=== PATIENT | male | born 1945 | race Caucasian/White ===

== ENCOUNTER 2024-02-08 11:07 | Emergency (ER) | payer OTHER, SELFPAY ==
--- NOTE | ~2024-02-08 | CT_ITS ---
EXAMINATION: CT angio head neck CLINICAL INFORMATION: Visual changes left eye. COMPARISON: No other prior imaging. TECHNIQUE: Blanket Weaver images were obtained. A CT angiogram of the head and neck was performed in the arterial phase after the intravenous administration of 50 mL Omnipaque 350. Pre and delayed postcontrast images of the head were also obtained. 3D images were processed on an independent workstation under concurrent supervision. Arterial stenoses are measured in accordance with NASCET criteria or similar method if applicable. This CT examination was performed using dose optimization techniques as appropriate, including one or more of the following: Automated exposure control, iterative reconstruction, and adjustment of technique factors (mA and/or kVp) according to patient size (this includes techniques or standardized protocols for targeted exams where dose is matched to indication/reason for exam). Fleischner Society criteria for the followup of incidental pulmonary nodules was implemented if appropriate. Total exam dose-length product 2472 mGy-cm FINDINGS: Head: There is no acute intracranial hemorrhage or abnormal extra-axial collection. Postcontrast images reveal no underlying cranial mass or enhancement. There is no mass effect or midline shift. Lateral and third ventricles are normal. No hydrocephalus. Cat-white matter differentiation is preserved and there is no evidence of acute territorial infarct. The calvarium and skull base are intact. Mastoid air cells and middle ear cavities are well aerated. No active paranasal sinus disease. CT angiogram neck: The aortic arch apex is normal. Origins of the major aortic branches are widely patent. Common carotid arteries are patent. Partially calcified atheromatous plaque involves both carotid bifurcations. There is no stenosis of the extracranial internal carotid arteries. Cervical segments of the vertebral arteries are widely patent. CT angiogram head: Intracranial internal carotid arteries are patent. The intradural vertebral artery segments and basilar artery are patent. Anterior, middle, and posterior cerebral complexes are normal. No intracranial large vessel occlusion. No identifiable aneurysm or high flow vascular lesion. Other: Soft tissues of the neck including the thyroid gland are normal. No pathologically enlarged cervical lymph nodes. Lung apices are clear. No acute osseous finding. Specifically no worrisome lytic or blastic osseous lesion. CT/CT angio head neck IMPRESSION: Unremarkable examination in that there is no stenosis of the cervical carotid or vertebral arteries. No intracranial large vessel occlusion. No evidence of acute territorial infarct or hemorrhage. No abnormal intracranial mass or enhancement. Electronically signed by: Anand Diamond MD 02/08/2024 04:00 PM EDT RP
[2024-02-08 11:12] VITALS: BP 113/58; PULSE 63; RESP 18; TEMP 36.1; O2SAT 94; BMI 31.2
--- NOTE | 2024-02-08 11:15 | ED.EYEPROB ---
HPI - Eye Problem General Chief complaint: Eye Problems Stated complaint: vission issues l eye Time Seen by Provider: 02/08/24 11:55 Source: patient Mode of arrival: ambulatory Limitations: no limitations History of Present Illness ED Provider: oziel MANDEL Narrative: Patient is a 78-year-old male with history of CVA, cataract surgery, HTN, HLD, and LA presenting to the emergency department with complaint of hazy vision to lower field of vision in left eye since waking this morning. States that the affected area is to lower lateral field of vision in left eye only. feels left lower eyelid is slightly swollen. He denies headache, dizziness or lightheadedness. Denies any weakness, numbness, tingling to extremities. Denies known foreign body to eye. chief complaint: vision change Onset (ago): hour(s) Onset description: awoke with symptoms Duration: constant Location: left eye Eye Symptoms: blurry vision Place: home Mechanism: none Associated symptoms: none Treatments Prior to Arrival: none Related Data Allergies Allergy/AdvReac Type Severity Reaction Status Date / Time rofecoxib [From Vioxx] Allergy Unknown Verified 02/08/24 11:20 Review of Systems Review of Systems: As per hPI Yes all other systems are reviewed and are negative Constitutional: Constitutional: Reports as per HPI [facility] Social History Social History Advance Directives: No Advance Directives Information Provided: No Do you have a plan to hurt others: No Plan Physical Exam Vital Signs: Vital Signs: Last Vital Signs Temp 96.9 F 02/08/24 11:12 Pulse 63 02/08/24 11:12 Resp 18 02/08/24 11:12 BP 113/58 L 02/08/24 11:12 Pulse Ox 94 02/08/24 11:12 O2 Del Method Room Air 02/08/24 11:12 BMI result Body Mass Index 31.2 Vital signs have been reviewed and appear to be correct. Blood pressure normal. Heart rate normal. Respiratory rate normal. Temperature normal. Oxygen saturation normal. Const: General: cooperative, healthy appearing and no acute distress Orientation/consciousness: oriented to person, oriented to place, oriented to time and patient oriented x3 Limitations: no limitations HEENT: Head: Yes normocephalic and Yes atraumatic Ears: external ears normal General nose exam: Normal external nose present Face and sinus: Yes face symmetric Mouth: oropharynx normal and moist mucous membranes Throat: Yes uvula midline Eyes: Other: General: appearance normal, both eyes and all related structures Visual Young: normal visual young by confrontation Alignment and Position: alignment normal and position normal Periorbital: periorbital findings normal Eyelids: Yes eyelids normal Conjunctivae: conjunctivae normal Sclerae: sclerae normal Corneas: corneas normal and fluorescein used Pupils: Equal, round and reactive pupils present EOM: EOMs intact bilaterally and No Nystagmus present Neck: Neck: Yes normal visual inspection, Yes no meningeal signs and Yes supple Resp: Effort & Inspection: normal respiratory effort and able to speak in complete sentences Auscultation: clear to auscultation bilaterally Cardio: Rate: regular rate Rhythm: regular rhythm Heart sounds: S1 normal heart sound present and S2 normal heart sound present GI: Palpation (GI): Soft to palpation and nontender Auscultation: normoactive bowel sounds : General: Yes no CVA tenderness Back/Spine/Pelvis: Back: no CVA tenderness Skin: General skin exam: elasticity normal and turgor normal Neuro: General: oriented to person, oriented to place, oriented to time, patient oriented x3, gait normal, tone normal, moves all extremities, Normal light touch and pain sensation, no meningeal signs, no focal motor deficits, CN's II-XI intact bilaterally and deep tendon reflexes 2+ bilaterally Cranial nerves: Yes CN's II-XII intact bilaterally, Yes Equal, round and reactive pupils present and No Nystagmus present Cognition (Neuro): normal cognition Motor exam (neuro): 5/5 motor strength present throughout, Pronator motor function not present, no tremor noted, no asterixis, Motor fasciculations not present, Normal motor muscle tone present throughout and Motor abnormalities not present Sensory Exam: Normal double simultaneous stimulation for sensation Extrem: General: Yes full ROM, Yes no pedal edema and Yes no calf tenderness Psych: Mental Status: mental status grossly normal Affect: normal affect Thought process: Normal thought process present Course Course Course Narrative: This is an RME: Additional HPI, ROS, PE not included below will be deferred to primary provider. RME assessment and note performed by: Wilma Rick PA-C This is a [id number], with a hx of HTN, HLD, and LA who presents to the ER with complaints of blurred vision which started this morning. Reports that he woke up this morning and his left eye was blurry. No eye pain, no eye trauma. No focal neurologic deficits on exam. He is not on anticoagulation. Plan: Labs, EKG, further ER eval needed. Medications Administered Discontinued Medications Generic Name Dose Route Start Last Admin Trade Name Alexandru PRN Reason Stop Dose Admin Fluorescein Sodium 1 strip 02/08/24 11:45 02/08/24 11:50 Fluorescein Sodium Strip EYE-LEFT 02/08/24 11:46 1 strip ONCE ONE Administration Iohexol 70 ml 02/08/24 13:49 02/08/24 13:49 Iohexol 350 Mg/Ml 75 Ml Infus..Btl IV 02/08/24 13:50 70 ml ONCE ONE Administration Medical Decision Making Medical Decision Making [facility] Narrative: Patient is a 78-year-old male with history of CVA, cataract surgery, HTN, HLD, and LA presenting to the emergency department with complaint of hazy vision to lower field of vision in left eye since waking this morning. On exam patient is awake, A+Ox3, VS WNL, afebrile, normal neurological exam without focal deficits, physical exam findings as above. IOP OS 16. Given reported symptoms and physical exam findings, initial differential includes retinal detachment, central vein occlusion, retinal artery occlusion. Unlikely CVA/TIA. No evidence of vitreous hemorrhage on physical exam. Labs unremarkable. CTA head and neck notable for no evidence of LVO, infarct or hemorrhage, no mass or enhancement. My interpretation is in agreement with the radiologist's interpretation. Call placed to Dr. Reno who feels that symptoms are likely due to a vein occlusion related to hypertension. 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 Reno if he does not have an police reserves commander. No obvious retinal detachment on ultrasound. Patient reassessed, still symptomatic in left eye only. Instructed patient to follow-up with his police reserves commander 1st thing tomorrow morning, describes symptoms and advised them he was evaluated in the emergency department. Dr. Reno states he can see patient if patient does not have an police reserves commander. Return precautions discussed at bedside. Patient verbalized understanding of and agreement with plan. Differential Diagnosis Differential Diagnoses: The differential diagnosis associated with the presentation includes As per [facility] Admission/Observation Consideration of admission/observation: Escalation of care including admission/observation considered Consult Healthcare Provider Management of the patient was discussed with: Conditioning Coach (Dr. Reno, ophthalmology) Lab Data [facility] Lab Attestation statement: I reviewed the patient's lab results. as per [facility] 02/08/24 11:31 02/08/24 11:31 Labs: Lab Results 02/08/24 Range/Units 11:31 WBC 5.3 (4.8-10.8) X10*3/uL RBC 4.76 (4.60-5.80) X10*6/uL Hgb 15.3 (14.0-18.0) g/dl Hct 44.4 (42.0-52.0) % MCV 93.3 (80.0-98.0) fL MCH 32.1 (27.0-33.0) pg MCHC 34.5 (31.0-36.0) g/dl RDW 13.3 (11.0-16.0) % Plt Count 173 (160-400) X10*3/uL MPV 10.1 (9.4-12.4) fL Immature Gran % (Auto) 0.4 (0.0-0.4) % Neut % (Auto) 60.6 (45-73) % Lymph % (Auto) 21.9 (20-40) % [place] % (Auto) 13.0 H (2-11) % Eos % (Auto) 3.0 (0-4) % Baso % (Auto) 1.1 (0-2) % Lymph # (Auto) 1.2 (1.2-4.9) X10*3/uL [place] # (Auto) 0.7 (0.1-1.2) X10*3/uL Eos # (Auto) 0.2 (0.0-0.4) X10*3/uL Baso # (Auto) 0.1 (0.0-0.2) X10*3/uL Abs Immat Gran (auto) 0.02 (0.00-0.03) X10*3/uL Absolute Neuts (auto) 3.2 (2.0-8.3) x10*3/uL Absolute Nucleated RBC 0.000 (0.0-0.012) X10*3/uL Nucleated RBC % (auto) 0.0 (0.0-0.2) /100WBC ESR 6 (0-15) MM/HR Sodium 143 (135-145) mmol/L Potassium 4.3 (3.3-5.1) mmol/L Chloride 110 H (96-108) mmol/L Carbon Dioxide 25 (22-29) mmol/L Anion Gap 12 (12-20) BUN 22 H (9-16) mg/dL Creatinine 1.25 (0.5-1.4) mg/dL Estim Creat Clear Calc 53.0 Estimated GFR 56 Random Glucose 120 H (60-115) mg/dL Calcium 9.7 (8.4-10.2) mg/dL Magnesium 2.1 (1.6-2.6) mg/dL Total Bilirubin 0.8 (0.0-1.0) mg/dL Direct Bilirubin 0.2 (0.0-0.5) mg/dL AST 17 (5-37) U/L ALT 20 (0-40) U/L Alkaline Phosphatase 89 (39-117) U/L Troponin I High Sens 3.7 (<3.5-35.0) ng/L C-Reactive Protein 0.37 (< or = 0.50) mg/dL Total Protein 6.3 L (6.5-8.0) g/dL Albumin 3.9 (3.5-5.0) g/dL Independent Interpretation I performed an independent interpretation of an: CT Scan Interpretation: No acute abnormalities CTA head and neck Radiology Impression Discussion of test interpretation with radiology: I have reviewed the radiologist's reading. Radiologist Impression: CT/CT angio head neck IMPRESSION: Unremarkable examination in that there is no stenosis of the cervical carotid or vertebral arteries. No intracranial large vessel occlusion. No evidence of acute territorial infarct or hemorrhage. No abnormal intracranial mass or enhancement. External Record Review External record reviewed: Inpatient record, Office record and Outpatient record Critical Care Time Critical Care Time Critical Care Time: Yes Total Critical Care Time: 45 Attestation: I have personally provided critical care time exclusive of time spent on separately billable procedures. Time includes review of lab data, radiology results, discussion with consultants, and monitoring for potential decompensation. Intervention performed as documented. Discharge Plan Discharge Clinical Impression: Vision changes Patient Disposition: Home, Self-Care Instructions: Blurred Vision (ED) Additional Instructions: You were evaluated in the emergency department today for vision changes to your left eye. The CT scan of your head and neck was normal. Your intra-ocular pressure in your left eye was normal (16). Your labs were within normal limits. Your blood pressure was normal. We recommend that you follow-up with your eye doctor 1st thing tomorrow morning. Describe your symptoms and let them know that you were evaluated in the emergency department. If they are unable to see you in a timely fashion, please call Dr. Reno's office tomorrow morning to schedule an appointment. Return to the emergency department if you develop additional changes in vision, severe headache, new weakness, numbness, tingling, difficulty speaking or walking, difficulty with normal activities or any other concerning symptoms. Referrals: Joel Reno [Physician] - Print Language: French
--- NOTE | 2024-02-08 11:22 | ECG_ITS ---
Test Reason : vision changes Blood Pressure : / mmHG Vent. Rate : 065 BPM Atrial Rate : 065 BPM P-R Int : 162 ms QRS Dur : 088 ms QT Int : 410 ms P-R-T Axes : 029 007 056 degrees QTc Int : 426 ms Sinus rhythm with Premature atrial complexes Possible Inferior infarct , age undetermined Abnormal ECG No previous ECGs available Referred By: Wilma Rick Electronically Signed By:ALLYSON MARSHALL
[2024-02-08 11:35] LABS: MANUAL DIFF FLAG NO
[2024-02-08 11:40] LABS: Basophils Absolute Auto 0.1 X10*3/uL (0.0-0.2); Basophils Percent Auto 1.1 % (0-2); Eosinophils Absolute Auto 0.2 X10*3/uL (0.0-0.4); Hematocrit 44.4 % (42.0-52.0); Hemoglobin 15.3 g/dl (14.0-18.0); Imm Gran Abs Auto 0.02 X10*3/uL (0.00-0.03); Imm Gran Pct Auto 0.4 % (0.0-0.4); Lymphocytes Absolute Auto 1.2 X10*3/uL (1.2-4.9); Lymphocytes Percent Auto 21.9 % (20-40); Mean Corpuscular HGB Conc 34.5 g/dl (31.0-36.0); Mean Corpuscular Hemoglobin 32.1 pg (27.0-33.0); Mean Corpuscular Volume 93.3 fL (80.0-98.0); Mean Platelet Volume 10.1 fL (9.4-12.4); Monocytes Absolute Auto 0.7 X10*3/uL (0.1-1.2); Neutrophils Absolute Auto 3.2 x10*3/uL (2.0-8.3); Neutrophils Percent Auto 60.6 % (45-73); Platelet Count 173 X10*3/uL (160-400); Red Blood Count 4.76 X10*6/uL (4.60-5.80); Red Cell Distribution Width 13.3 % (11.0-16.0); White Blood Count 5.3 X10*3/uL (4.8-10.8)
[2024-02-08] MEDS: Fluorescein Sodium STRIP 1 STRIP EYE-LEFT (11:50)
[2024-02-08 11:53] LABS: Alanine Aminotransferase 20 U/L (0-40); Albumin Level 3.9 g/dL (3.5-5.0); Alkaline Phosphatase 89 U/L (39-117); Anion Gap 12 (12-20); Aspartate Amino Transferase 17 U/L (5-37); Bilirubin Direct 0.2 mg/dL (0.0-0.5); Bilirubin Total 0.8 mg/dL (0.0-1.0); Blood Urea Nitrogen 22 mg/dL (9-16); C Reactive Protein 0.37 mg/dL (< or = 0.50); Calcium 9.7 mg/dL (8.4-10.2); Carbon Dioxide 25 mmol/L (22-29); Chloride 110 mmol/L (96-108); Estimated Glomerular Filt Rate 56; Glucose Random 120 mg/dL (60-115); Magnesium 2.1 mg/dL (1.6-2.6); Potassium 4.3 mmol/L (3.3-5.1); Sodium 143 mmol/L (135-145); Total Protein 6.3 g/dL (6.5-8.0)
[2024-02-08 11:56] LABS: Troponin-I High Sensitivity 3.7 ng/L (<3.5-35.0)
[2024-02-08 12:28] LABS: Erythrocyte Sedimentation Rate 6 MM/HR (0-15)
[2024-02-08] MEDS: iohexoL 350 MG/ML 75 ML INFUS..BTL 70 ML IV (13:49)
[2024-02-08 19:06] VITALS: BP 130/75; PULSE 58; RESP 15; TEMP 36.3; O2SAT 96
[2024-02-08 19:28] VITALS: BP 130/75; PULSE 58; RESP 15; TEMP 36.3; O2SAT 96
== END 2024-02-08 19:28 | disposition home or self-care (01) ==
PROVIDERS: Physician Assistant Medical; Emergency Provider Emergency Medicine Emergency Medical Services; PCP Internal Medicine
DX: H53.8 Other visual disturbances (principal); H53.9 Unspecified visual disturbance; I10 Essential (primary) hypertension; I25.2 Old myocardial infarction; R94.31 Abnormal electrocardiogram [ECG] [EKG]; Z86.73 Personal history of transient ischemic attack (TIA), and cerebral infarction without residual deficits; Z79.899 Other long term (current) drug therapy
CPT/HCPCS: 36415; 70496; 70498; 80048; 80076; 83735; 84484; 85025; 85652; 86140; 93005; 99284; Q9967